=== PATIENT | female | born 1960 | race Caucasian/White ===

== ENCOUNTER 2017-07-03 08:20 | Inpatient (IN) | payer BC ==
[2017-06-07 11:41] VITALS: BMI 26.0
--- NOTE | 2017-06-07 12:18 | PAT Medication Instructions ---
Service Date Jun 07, 2017. Current Home Medication List Albuterol Hfa (Ventolin Hfa), 2 PUFFS INH Q6H PRN for PRN Aripiprazole (Abilify), 20 MG PO HS Lamotrigine (Lamictal), 350 MG PO HS Levothyroxine Sodium (Synthroid), 100 MCG PO QAM Sertraline (Zoloft), 200 MG PO HS Tramadol (Ultram), 50 MG PO Q6H Trazodone Hcl (Trazodone), 50 MG PO HS Medication Instructions For Your Scheduled Surgery - Take the following medications the morning of surgery with a sip of water: Albuterol Hfa (Ventolin Hfa), 2 PUFFS INH Q6H PRN for PRN (if needed, AND BRING WITH YOU TO THE HOSPITAL) Levothyroxine Sodium (Synthroid), 100 MCG PO QAM Tramadol (Ultram), 50 MG PO Q6H (if needed, can be taken up to 4 hours prior to surgery) - Take the following medications as scheduled the night before surgery: Trazodone Hcl (Trazodone), 50 MG PO HS Sertraline (Zoloft), 200 MG PO HS Aripiprazole (Abilify), 20 MG PO HS Lamotrigine (Lamictal), 350 MG PO HS Albuterol Hfa (Ventolin Hfa), 2 PUFFS INH Q6H PRN for PRN (if needed) Tramadol (Ultram), 50 MG PO Q6H If you have any questions please call us at [phone] or [phone] or [phone]
[2017-06-07 12:55] LABS: BASO % 0.2 %; BASO ABS # 0.02 K/uL (0-0.2); COMPLETE YES; EOS % 1.6 %; HEMATOCRIT 41.7 % (37-47); IG% 0.4 %; LYMPH % 24.9 %; LYMPH ABS # 2.24 K/uL (1.2-3.4); MEAN CELL VOLUME 89.1 fL (80-100); MEAN CORPUSCULAR HEMOGLOBIN 29.3 pg (25-34); MEAN CORPUSCULAR HGB CONC 32.9 g/dl (32-36); MONO % 5.2 %; NEUT % 67.7 %; PLATELET COUNT 198 K/uL (130-400); RED BLOOD COUNT 4.68 M/uL (4.2-5.4)
[2017-06-07 13:03] LABS: CALCIUM 9.3 mg/dl (8.5-10.1); CREATININE 0.92 mg/dl (0.60-1.20); POTASSIUM 5.5 mmol/L (3.5-5.1)
[2017-06-07 13:06] LABS: URINE APPEARANCE CLEAR (CLEAR); URINE BILIRUBIN NEG (NEG); URINE COLOR YELLOW; URINE NITRITE NEG (NEG); URINE PH 6.5 (4.5-7.5); URINE SPECIFIC GRAVITY 1.008 (1.000-1.030); UROBILINOGEN NEG (NEG); ZZUR CULT IF INDIC CLEAN CATCH NO
[2017-06-07 13:11] LABS: MANUAL MICROSCOPIC REQUIRED? NO; REVIEW REQ? NO
[~2017-07-03] VITALS: Ht 170.2 cm; Wt 75.0 kg
[2017-07-03] VITALS (10 sets, daily range): BP systolic 88–124; BP diastolic 50–76; PULSE 48–64; TEMP 36.5–37; O2SAT 95–100; Ht 170.2 cm; Wt 75.0 kg
[~2017-07-03 08:20] MED LIST: ABL10 PO; ATROPINE SULFATE 0.1 MG/ML 5ML SYR IV PRN; CEFAZOLIN 1000MG IV PUSH 5 ML IV SCH; EpHEDrine SULFATE INJ 50 MG/ML AMP IV PRN; FENTANYL CITRATE INJ 50 MCG/1 ML 2 ML VIAL IV PRN; LACTATED RINGER'S 1000ML 1,000 ML IV SCH; LAMO200T38 PO; LEVO100T PO; Levoxyl PO; ONDANSETRON INJ 2 MG/ML 2 ML VIAL IV PRN; SERT-234 PO; TRAM-10 PO; TRAZ50TA35 PO; VNTHFA/IN INH
[2017-07-03] MEDS ORDERED: MIDAZOLAM HCL 1 MG/ML 2ML VIAL ONE (09:41)
[2017-07-03] MEDS ORDERED: FENTANYL CITRATE INJ 50 MCG/1 ML 2 ML VIAL ONE ×4 (09:41→12:36)
--- NOTE | 2017-07-03 09:45 | History & Physical Bridge Note ---
H&P Re-Evaluation Bridge Note: I have examined the patient, reviewed the History & Physical and in the interval since the performance of the History & Physical I have noted the following changes of clinical significance: No changes noted
--- NOTE | 2017-07-03 09:46 | History and Physical ---
History & Physical Date Jul 03, 2017. Chief Complaint Back and leg pain History of Present Illness The patient is a 56 year old female with complaints of back and leg pain Additional History Hepatic Disease: No Endocrine Disorder: No Kidney Disease: No Hypertension: No Heart Disease: No Bleeding Tendencies: No Infectious Diseases: No Allergies Coded Allergies: Gluten (Verified Allergy, Unknown, UPSET, 07/03/17) Morphine (Verified Allergy, Unknown, ISN'T EFFECTIVE, 07/03/17) Home Medications Scheduled Aripiprazole (Abilify), 20 MG PO HS Lamotrigine (Lamictal), 350 MG PO HS Levothyroxine Sodium (Synthroid), 100 MCG PO QAM Sertraline (Zoloft), 200 MG PO HS Tramadol (Ultram), 50 MG PO Q6H Trazodone Hcl (Trazodone), 50 MG PO HS Scheduled PRN Albuterol Hfa (Ventolin Hfa), 2 PUFFS INH Q6H PRN for PRN Physical Examination Skin: warm/dry, no rash Eyes: normal inspection, EOMI, sclerae normal ENT: normal ENT inspection, pharynx normal Head: normocephalic, atraumatic Neck: supple, no adenopathy, trachea midline Respiratory/Chest: lungs clear, normal breath sounds, no respiratory distress Cardiovascular: regular rate, rhythm, no edema, no murmur Abdomen / GI: normal bowel sounds, non tender Back: normal inspection Extremities: normal inspection, normal range of motion Neurologic/Psych: no motor/sensory deficits, alert, normal reflexes, oriented x 3 Diagnosis Lumbar spinal stenosis Plan of Treatment L4 to S1 decompression and fusion
[2017-07-03] MEDS ORDERED: BACITRACIN 50000 UNIT VIAL ONE (10:10)
[2017-07-03] MEDS ORDERED: BUPIVACAINE/EPINEPHRINE 0.5% MPF 1:200,000 30 ML VIAL ONE (10:10)
[2017-07-03] MEDS ORDERED: HYDROmorphone INJ 2 MG/ML SYR/VIAL ONE ×2 (10:55→11:44)
[2017-07-03] MEDS ORDERED: DEXAMETHASONE SOD INJ 4 MG/ML VIAL ONE (11:48)
[2017-07-03] MEDS ORDERED: METOCLOPRAMIDE HCL INJ 5 MG/ML 2 ML VIAL ONE (11:48)
[2017-07-03] MEDS ORDERED: ONDANSETRON INJ 2 MG/ML 2 ML VIAL ONE (11:48)
[2017-07-03] MEDS ORDERED: PROPOFOL IV EMULSION 10 MG/ML 20 ML VIAL IV ONE (11:48)
[2017-07-03] MEDS ORDERED: RANITIDINE HCL 25 MG/ML INJ ONE (11:48)
[2017-07-03] MEDS ORDERED: LIDOCAINE HCL 2% 2 ML VIAL (20MG/ML) ONE (11:48)
[2017-07-03] MEDS ORDERED: FLOSEAL HEMOSTATIC MATRIX 10ML TOP ONE (12:15)
[2017-07-03] MEDS ORDERED: SODIUM CHLORIDE 0.9% 1000ML 1,000 ML IV SCH (12:21)
[2017-07-03] MEDS ORDERED: FAMOTIDINE 20 MG TAB PO PRN (12:30)
[2017-07-03] MEDS ORDERED: ONDANSETRON INJ 2 MG/ML 2 ML VIAL IV PRN (12:30)
[2017-07-03] MEDS ORDERED: ALBUTEROL HFA 8 GM INHALER INH PRN (12:30)
[2017-07-03] MEDS ORDERED: PROMETHAZINE HCL INJ 12.5 MG in SODIUM CHLORIDE 0.9% 50ML 50 ML IV PRN (12:30)
[2017-07-03] MEDS ORDERED: LORAZEPAM 0.5 MG TAB PO PRN (12:30)
[2017-07-03] MEDS ORDERED: hydrOXYzine HCL 25 MG TAB PO PRN (12:30)
[2017-07-03] MEDS ORDERED: ALUMINUM/MAGNESIUM SUSP 30 ML UDC PO PRN (12:30)
[2017-07-03] MEDS ORDERED: NALOXONE HCL 0.4 MG/1 ML VIAL/CARP IV PRN ×2 (12:30)
[2017-07-03] MEDS ORDERED: METOCLOPRAMIDE HCL INJ 5 MG/ML 2 ML VIAL IV PRN (12:30)
[2017-07-03] MEDS ORDERED: LORAZEPAM INJ 0.5 MG in SYRINGE 0 ML IV PRN (12:30)
[2017-07-03] MEDS ORDERED: TRAMADOL HCL 50 MG TAB PO PRN (12:30)
[2017-07-03] MEDS ORDERED: ACETAMINOPHEN 500 MG TAB PO PRN (12:30)
[2017-07-03] MEDS ORDERED: DO NOT ADMINISTER FLU VACCINE PRN ×3 (12:30)
[2017-07-03] MEDS ORDERED: BISACODYL 10 MG SUPP PR PRN (12:30)
[2017-07-03] MEDS ORDERED: DO NOT ADMINISTER PNEUMOCOCCAL VACCINE PRN ×2 (12:30)
[2017-07-03] MEDS ORDERED: ACETAMINOPHEN IV 100 ML IV PRN (12:30)
[2017-07-03] MEDS ORDERED: SOD PHOSPHATE/SOD BIPHOSPHATE ENEMA 132 ML BTL PR PRN (12:30)
[2017-07-03] MEDS ORDERED: CEFAZOLIN IV 2,000 MG in DEXTROSE 5% 50ML 50 ML IV SCH (12:30)
[2017-07-03] MEDS ORDERED: MAGNESIUM HYDROXIDE SUSP 30 ML UDC PO PRN (12:30)
--- NOTE | 2017-07-03 12:30 | [facility] Operative Report ---
Operative Report Operative Date Jul 03, 2017. Pre-Operative Diagnosis Lumbar spinal stenosis Post-Operative Diagnosis Lumbar spinal stenosis Procedure(s) Performed #1 lumbar decompression medial facetectomies foraminotomies L4 5 L5-S1. #2 posterior spinal fusion L4 5 L5-S1. #3 placement posterior segmental instrumentation L4 5 L5-S1. #4 interbody fusion L4 5 L5-S1. #5 placement peek cage 11 x 22 mm at L4 5 and 9 x 22 mm L5-S1. #6 placement of locally harvested morcellized autograft in the posterior lateral gutters. #7 placement infuse collagen sponge commode Master graft in the posterior lateral gutters and ostial amp in the interbody space. Surgeon Dr. Sousa Trash Hauler Surgeon(s) Esther Multani PA-C Findings Severe spinal stenosis Specimens none per surgeon Description of Procedure Patient was met with preoperatively case discussed all questions addressed. After informed consent was obtained patient was taken to the operative suite underwent intubation placed in a prone position the Yannick table on top Temo frame. All bony prominences were well-padded eyes inspected to ensure no external pressure placed upon them. Lumbar spines prepped and draped in the normal sterile fashion. Sharp dissection with the assistance of Bovie cautery was performed onto an exposing the lamina and transverse processes of L4-L5 and the sacral alar bilaterally. From a caudal to cephalad fashion complete laminectomy of L5 L4 was performed addressing severe lateral recess and foraminal disease. After this complete pedicle screws were placed in L4-L5 and S1 levels bilaterally with assistance of fluoroscopy in the purposes sari placed. Through a transforaminal approach on the right a complete discectomy of L5-S1 was performed and plate created to subcortical bleeding bone and a 9 x 22 mm peek cage filled with ostial amp tapped in position. Then proceeded to L4 -L5. Through a transforaminal approach on the right complete discectomy was performed and endplates curetted to subcortical bleeding bone and a by 22 mm peek cage filled with ostial amp tapped in position. The rods were then locked and final position bilaterally. The transverse processes of L4-L5 and the sacral alar burred to subcortical bleeding bone. Infuse collagen sponge mask graft locally harvested morcellized autograft was placed the posterior lateral gutters. 15 round EMILIE drain inserted. Incision was then closed with 1 Vicryl in the fascia 2-0 Vicryl subcutaneous cutaneously 4 Monocryl for final skin closure Steri-Strips sterile dressings placed. Patient we can take PACU stable condition. Please note Esther Kothari was present at the entire procedure involved in patient positioning complex portions of the procedure and final skin closure. I attest to the content of the Intraoperative Record and any orders documented therein. Any exceptions are noted below.
[2017-07-03] MEDS ORDERED: EpHEDrine SULFATE 50MG/5ML SYR ONE (12:36)
[2017-07-03] MEDS ORDERED: HYDROmorphone HCL 0.5MG/ML 50 ML CASSETTE ONE (12:53)
--- NOTE | 2017-07-03 13:18 | Anesthesiology Progress Note ---
Anesthesia Post Op Note Date & Time Jul 03, 2017 at 13:18 Vital Signs Pain Intensity: 0 Vital Signs Past 12 Hours Date Time Temp Pulse Resp B/P (MAP) Pulse Ox O2 Delivery O2 Flow Rate FiO2 07/03/17 13:10 69 20 126/73 100 Nasal Cannula 4 07/03/17 13:00 69 20 125/70 100 Oxymask 10 07/03/17 12:50 36.0 69 14 131/69 100 Oxymask 10 07/03/17 08:54 36.5 58 18 111/71 95 Room Air Notes Mental Status: alert / awake / arousable, participated in evaluation Pt Amnestic to Procedure: Yes Nausea / Vomiting: adequately controlled Pain: adequately controlled Airway Patency, RR, SpO2: stable & adequate BP & HR: stable & adequate Hydration State: stable & adequate Anesthetic Complications: no major complications apparent
--- NOTE | 2017-07-03 13:35 | DIAGNOSTIC IMAGING REPORT ---
INTRAOPERATIVE RADIOGRAPHS CLINICAL HISTORY: L4-S1 spinal fusion. Fluoroscopy time: 22 seconds. FINDINGS: 2 spot fluoroscopic views of the lumbar spine are presented. There is been discectomy at L4-L5 and L5-S1 with laminectomy and posterior fusion from L4 -S1. Interpedicular screws are present at all levels. The orthopedic hardware appears intact. IMPRESSION: Intraoperative images from L4 -S1 spinal fusion as above. Electronically signed by: Julio Bell M.D. 07/03/2017 1:34 PM Dictated Date/Time: 07/03/2017 1:33 PM
[2017-07-03] MEDS: HYDROmorphone HCL 0.5MG/ML 50 ML CASSETTE IV PRN ×3 (13:36→23:18)
[2017-07-03] MEDS: LACTATED RINGER'S 1000ML 1,000 ML IV SCH ×3 (13:40→23:40)
[2017-07-03] MEDS ORDERED: ROCURONIUM BROMIDE 10 MG/ML 5 ML VIAL IV ONE (14:04)
[2017-07-03] MEDS: CEFAZOLIN IV 2,000 MG in SYRINGE 0 ML IV SCH (18:10)
[2017-07-03] MEDS: DEXAMETHASONE INJ 6 MG in SYRINGE 0 ML IV SCH (20:01)
[2017-07-03] MEDS: DOCUSATE SODIUM/SENNA 50/8.6MG TAB PO SCH (21:20)
[2017-07-03] MEDS: ARIPIprazole TAB 10 MG TAB PO SCH (21:20)
[2017-07-03] MEDS: TRAZODONE HCL 50 MG TAB PO SCH (21:20)
[2017-07-03] MEDS: SERTRALINE HCL 100 MG TAB PO SCH (21:20)
[2017-07-04] VITALS (8 sets, daily range): BP systolic 78–99; BP diastolic 44–66; PULSE 53–68; TEMP 36.7–37; O2SAT 93–97
[2017-07-04] MEDS: CEFAZOLIN IV 2,000 MG in SYRINGE 0 ML IV SCH ×2 (02:02→09:42)
[2017-07-04] MEDS: DEXAMETHASONE INJ 6 MG in SYRINGE 0 ML IV SCH ×2 (03:40→12:15)
[2017-07-04] MEDS ORDERED: HYDROmorphone INJ 1 MG/ML SYR IV PRN (06:00)
[2017-07-04] MEDS: OXYCODONE HCL IR 5 MG TAB (IMMEDIATE RELEASE) PO PRN ×3 (06:09→21:17)
[2017-07-04] MEDS: LEVOTHYROXINE 100 MCG TAB PO SCH (06:09)
[2017-07-04] MEDS ORDERED: NURSING VERBAL MED ORDER ONE (06:15)
[2017-07-04 06:38] LABS: BASO % 0.1 %; BASO ABS # 0.01 K/uL (0-0.2); COMPLETE YES; HEMATOCRIT 34.7 % (37-47); IG% 0.2 %; LYMPH % 6.4 %; MEAN CELL VOLUME 88.5 fL (80-100); MEAN CORPUSCULAR HEMOGLOBIN 28.6 pg (25-34); MEAN CORPUSCULAR HGB CONC 32.3 g/dl (32-36); MEAN PLATELET VOLUME 10.1 fL (7.4-10.4); MONO % 2.7 %; NEUT % 90.6 %; PLATELET COUNT 163 K/uL (130-400); RED BLOOD COUNT 3.92 M/uL (4.2-5.4); WHITE BLOOD COUNT 10.97 K/uL (4.8-10.8)
[2017-07-04 07:16] LABS: BUN/CREATININE RATIO 8.4 (10-20); CALCIUM 8.4 mg/dl (8.5-10.1); CREATININE 0.88 mg/dl (0.60-1.20); POTASSIUM 4.1 mmol/L (3.5-5.1)
--- NOTE | 2017-07-04 07:38 | Anesthesiology Progress Note ---
Anesthesia Post Op Note Date & Time Jul 04, 2017 at 07:38 Vital Signs Pain Intensity: 6.0 Vital Signs Past 12 Hours Date Time Temp Pulse Resp B/P (MAP) Pulse Ox O2 Delivery O2 Flow Rate FiO2 07/04/17 07:15 36.7 53 16 93/61 (72) 95 Room Air 07/04/17 04:00 94/55 (68) 07/04/17 03:30 36.7 61 16 81/44 (56) 94 Room Air 78/44 (55) 07/04/17 02:00 58 07/03/17 23:30 Room Air 07/03/17 23:25 36.6 48 16 93/57 (69) 95 Room Air 07/03/17 19:58 55 93/56 (68) Notes Mental Status: alert / awake / arousable, participated in evaluation Pt Amnestic to Procedure: Yes Nausea / Vomiting: adequately controlled Pain: adequately controlled Airway Patency, RR, SpO2: stable & adequate BP & HR: stable & adequate Hydration State: stable & adequate Anesthetic Complications: no major complications apparent
[2017-07-04] MEDS ORDERED: RXC5 PO (09:06)
--- NOTE | 2017-07-04 09:07 | Discharge Instructions ---
Discharge Instructions Date of Service Jul 04, 2017. Admission Reason for Admission: Lumbar Spinal Stenosis Discharge Discharge Diagnosis / Problem: lumbar stenosis Discharge Goals Goal(s): Improve function Activity Recommendations Activity Limitations: per Instructions/Follow-up section . Instructions / Follow-Up Instructions / Follow-Up ACTIVITY RECOMMENDATIONS: SELF CARE INSTRUCTIONS AFTER THORACIC/LUMBAR FUSIONS 1. You may walk to your tolerance. It is good exercise for your legs and back. Expect some back and intermittent leg aches and pains. 2. You may perform "counter-top" level activities (make a sandwich, guillermo with a project, etc.). 3. No bending or lifting of more than 10 pounds or back twisting of any nature (roll like a log when turning in bed). 4. You may ride in a car for 20-30 minutes at a time. No driving until after your first visit with your doctor. 5. Frequent changes of position and restricting sitting to 30 minutes at a time will help limit the amount of back spasms and stiffness you may experience. 6. You may discontinue the use of ambulatory aids (cane, crutches, etc.) once your strength and confidence allow. 7. You may dining car conductor the shower and let water strike your incision when you arrive home at least once daily. Do not take a tub bath, sit in a hot tub or go into a swimming pool until after your first recheck in the office. SPECIAL CARE INSTRUCTIONS: VERY IMPORTANT TO READ AND REVIEW A. Your surgical incision has been closed with a cosmetic suture under the skin that will dissolve in about 6 weeks. In 14 days, you can use a pair of clean scissors and cut the suture that is left outside of the skin at the ends of your incision. 1. The small skin tapes can be removed 7 days after surgery if they have not fallen off by that point. 2. You may keep the wound open to air as much as possible to promote healing after post-op day number 5 unless told otherwise by your doctor. 3. If you think the wound looks like it is becoming infected (redness or worsening drainage) and/or you are experiencing fever, chill or worsening back pain and muscle spasms, contact the office so that we may evaluate you as soon as possible. B. Complications are uncommon, but please contact us if you have any signs or symptoms of: 1. wound infection (fever higher than 102.5 degrees F, redness, separation of wound, drainage, or increasing pain from the incision) 2. blood clots in legs (pain, swelling, redness and warmth in legs) 3. urinary tract infection (fever higher than 102.5 degrees F, burning upon urination or increased frequency of urination) 4. nerve problems (inability to walk on your toes or heels, numbness, loss of bowel or bladder control) 5. any other symptoms that concern you C. Please call the office at if you have any concerns or questions about your operation or recovery. D. No smoking! Smoking drastically decreases the chance of a solid fusion. E. Do not take any anti-inflammatory medications (Indocin, Advil, Motrin, Aspirin, Naprosyn, etc.) as these may inhibit the chance of a solid fusion. Tylenol is okay to take for pain. MANAGING PAIN AFTER SPINAL SURGERY 1. Narcotic medication is intended for short-term use and will be provided for surgical pain. Surgical pain usually lasts for a period of 4-6 weeks. Narcotic medication includes Percocet, Vicodin, Darvocet, Tylenol #3 or Lortab. 2. Longer-term pain is more appropriately treated with non-narcotic medication such as Tylenol ES. 3. Muscle spasm is not appropriately treated with narcotics. Muscle relaxers such as Soma, Flexeril or Skelaxin can be used along with Tylenol ES. 4. Remember that we all live with some "aches and pains". This is not unusual or uncommon after an injury or as we get older. a. Back pain is expected and may include muscle spasms for 4 to 6 weeks after surgery. The pain should gradually improve. If the pain worsens for no apparent reason, please contact the office. b. Intermittent leg pain may also be experienced and should not be concerned about unless it worsens for no apparent reason. If so, please contact the office. 5. We will provide appropriate medication within the normal guidelines of their prescribed use. We will also be very cautious and aware of potential abuse and extended duration of patients' medication needs. a. Pain medications are for your comfort and to assist with sleep and rest so that the tissue can heal. They are not provided in order to return to normal activity and should not be used through the day. To do so or worsening pain at night can result from ongoing tissue damage and development of tolerance to the prescribed medicine. 6. Please allow 2-3 days to process refills. Prescriptions will not be mailed but must be picked up at the office. FOLLOW UP VISIT: Keep your scheduled follow-up appointment. Any questions, please call the office at . Current Hospital Diet Patient's current hospital diet: Gluten Free Diet Discharge Diet Recommended Diet: Regular Diet Procedures Procedures Performed: #1 lumbar decompression medial facetectomies foraminotomies L4 5 L5-S1. #2 posterior spinal fusion L4 5 L5-S1. #3 placement posterior segmental instrumentation L4 5 L5-S1. #4 interbody fusion L4 5 L5-S1. #5 placement peek cage 11 x 22 mm at L4 5 and 9 x 22 mm L5-S1. #6 placement of locally harvested morcellized autograft in the posterior lateral gutters. #7 placement infuse collagen sponge commode Master graft in the posterior lateral gutters and ostial amp in the interbody space. Pending Studies Studies pending at discharge: no Medical Emergencies . Who to Call and When: Medical Emergencies: If at any time you feel your situation is an emergency, please call 911 immediately. . Non-Emergent Contact Non-Emergency issues call your: Primary Care Provider . "Provider Documentation" section prepared by Nuno Sousa. . VTE Core Measure Inpt VTE Proph given/why not?: Vik Pitt, SCD's
--- NOTE | 2017-07-04 12:16 | Clinical Documentation Query ---
CLINICAL DOCUMENTATION QUERY 56-y/o female who has undergone L4-S1 fusion. H&P list this patient as having no past medical history. However med rec reveals patient takes the follow medications and is continued on them while and inpatient: albuterol Hfa, Abilify, Lamictal, Synthroid, & Zoloft. In your clinical opinion is this patient being managed for: ( ) Bipolar disorder ( ) Depression ( ) Asthma ( ) Hypothyroidis ( ) Not Agree ( ) Other explanation of clinical findings (Please Explain) ( ) Unable to determine (Please Define) ( ) Need to Discuss The medical record reflects the following clinical findings, treatment, and risk factors. Clinical Indicators: As above. Treatment: Lamictal, Zoloft, Abilify, Synthroid, Albuterol Risk Factors: On home therapy Please clarify and document your clinical opinion in the progress notes and discharge summary. Terms such as "probable", "suspected", "likely", "questionable", "possible", or "still to be ruled out" are acceptable. IF IN AGREEMENT, YOU MUST DOCUMENT ABOVE DIAGNOSTIC STATEMENT IN DAILY PROGRESS NOTES AND DISCHARGE SUMMARY. This document is not part of the patient's record. Thank You, Vito Alegria RN [phone]
--- NOTE | 2017-07-04 12:47 | Progress Note ---
Progress Note Date of Service Jul 04, 2017. Progress Note Patient is postop day #1. Back pain is controlled. Leg pain improved. Vital signs are stable. On exam she is good strength testing appears comfortable. Assessment status post lumbar decompression fusion replant this time will continue physical therapy advance her bowel regiment anticipate home the next few days.
[2017-07-04] MEDS: HYDROmorphone INJ 0.5 MG/0.5 ML SYR IV PRN ×3 (14:51→23:54)
[2017-07-04] MEDS: TRAZODONE HCL 50 MG TAB PO SCH (21:04)
[2017-07-04] MEDS: ARIPIprazole TAB 10 MG TAB PO SCH (21:04)
[2017-07-04] MEDS: DOCUSATE SODIUM/SENNA 50/8.6MG TAB PO SCH (21:05)
[2017-07-04] MEDS: SERTRALINE HCL 100 MG TAB PO SCH (21:05)
[2017-07-05] MEDS: HYDROmorphone INJ 0.5 MG/0.5 ML SYR IV PRN (04:31)
[2017-07-05] MEDS: LEVOTHYROXINE 100 MCG TAB PO SCH (05:52)
[2017-07-05] MEDS: POLYETHYLENE (MIRALAX) 17 GM PACK PO SCH ×4 (05:52→23:41)
[2017-07-05 06:02] VITALS: BP 94/59; PULSE 60; TEMP 36.7; O2SAT 96
[2017-07-05] MEDS: OXYCODONE HCL IR 5 MG TAB (IMMEDIATE RELEASE) PO PRN ×2 (07:41→14:55)
[2017-07-05] MEDS: KETOROLAC TROMETHAMINE 30 MG/ML VIAL IV PRN ×2 (07:41→19:58)
[2017-07-05 08:49] VITALS: O2SAT 94
[2017-07-05 11:32] VITALS: BP 100/68; PULSE 56; TEMP 37.1; O2SAT 94
--- NOTE | 2017-07-05 11:44 | Progress Note ---
Progress Note Date of Service Jul 05, 2017. Progress Note Patient is postop day #2 status post lumbar decompression fusion. Her back pain is controlled. She has no leg pain. She is ambulating halls. Vital signs stable. EMILIE drain decreasing probably. She is good strength testing. Assessment status post lumbar decompression fusion. Planned this time will continue physical therapy anticipate discharge home tomorrow.
[2017-07-05 15:03] VITALS: BP 94/55; PULSE 65; TEMP 36.8; O2SAT 95
[2017-07-05] MEDS: ARIPIprazole TAB 10 MG TAB PO SCH (21:41)
[2017-07-05] MEDS: DOCUSATE SODIUM/SENNA 50/8.6MG TAB PO SCH (21:41)
[2017-07-05] MEDS: SERTRALINE HCL 100 MG TAB PO SCH (21:41)
[2017-07-05] MEDS: TRAZODONE HCL 50 MG TAB PO SCH (21:41)
[2017-07-05 22:54] VITALS: BP 95/61; PULSE 60; TEMP 36.8; O2SAT 97
[2017-07-06] MEDS: POLYETHYLENE (MIRALAX) 17 GM PACK PO SCH ×2 (05:44→11:30)
[2017-07-06] MEDS: LEVOTHYROXINE 100 MCG TAB PO SCH (05:44)
[2017-07-06 07:25] VITALS: BP 103/66; PULSE 62; TEMP 37.2; O2SAT 96
[2017-07-06] MEDS: OXYCODONE HCL IR 5 MG TAB (IMMEDIATE RELEASE) PO PRN ×2 (07:39→12:10)
[2017-07-06 09:30] VITALS: BP 103/66; PULSE 62; TEMP 37.2; O2SAT 96
--- NOTE | 2017-07-06 11:16 | Discharge Summary ---
Orthopedic Discharge Summary Admission Date/Reason Jul 03, 2017 at 09:50 Lumbar Spinal Stenosis. Discharge Date/Disposition Jul 06, 2017 Home Diagnosis Principal Diagnosis: Lumbar spinal stenosis Admission Physical Exam As per Admitting History & Physical. Hospital Course Patient underwent lumbar decompression fusion tolerated as well as taken to the orthopedic floor postoperatively. Postoperative day #1 she was up and amatory rest nicely through postoperative day #2 socially postoperative day #3 she was discharged home discharge orders and instructions can be found on the chart for further review. Discharge Instructions Please refer to the electronic Patient Visit Report (Discharge Instructions) for additional information.
== END 2017-07-06 13:00 | disposition home or self-care (01) | DRG 455 ==
LOC: C.ACU 08:20 → C.3E 09:50 → ENRESERV 13:08
PROVIDERS: ADMIT Orthopaedic Surgery Orthopaedic Surgery of the Spine; ATTEND Orthopaedic Surgery Orthopaedic Surgery of the Spine
PROC: 0SG30AJ Fusion of Lumbosacral Joint with Interbody Fusion Device, Posterior Approach, Anterior Column, Open Approach (ICD-10-PCS; principal; 2017-07-03 10:15)
PROC: 0ST40ZZ Resection of Lumbosacral Disc, Open Approach (ICD-10-PCS; principal; 2017-07-03 10:15)
PROC: 0SG0071 Fusion of Lumbar Vertebral Joint with Autologous Tissue Substitute, Posterior Approach, Posterior Column, Open Approach (ICD-10-PCS; principal; 2017-07-03 10:15)
PROC: 3E0U0GB Introduction of Recombinant Bone Morphogenetic Protein into Joints, Open Approach (ICD-10-PCS; principal; 2017-07-03 10:15)
PROC: 0SG3071 Fusion of Lumbosacral Joint with Autologous Tissue Substitute, Posterior Approach, Posterior Column, Open Approach (ICD-10-PCS; principal; 2017-07-03 10:15)
PROC: 0SG00AJ Fusion of Lumbar Vertebral Joint with Interbody Fusion Device, Posterior Approach, Anterior Column, Open Approach (ICD-10-PCS; principal; 2017-07-03 10:15)
PROC: 0ST20ZZ Resection of Lumbar Vertebral Disc, Open Approach (ICD-10-PCS; principal; 2017-07-03 10:15)
DX: M48.061 Spinal stenosis, lumbar region without neurogenic claudication (principal); S22.32XD Fracture of one rib, left side, subsequent encounter for fracture with routine healing; W19.XXXD Unspecified fall, subsequent encounter; J44.9 Chronic obstructive pulmonary disease, unspecified; K21.9 Gastro-esophageal reflux disease without esophagitis; M19.90 Unspecified osteoarthritis, unspecified site; F31.9 Bipolar disorder, unspecified; F17.210 Nicotine dependence, cigarettes, uncomplicated; Z91.14 Patient's other noncompliance with medication regimen; Z79.891 Long term (current) use of opiate analgesic; Z79.899 Other long term (current) drug therapy